=== PATIENT | male | born 1965 | race African-American/Black ===

== ENCOUNTER 2018-10-08 12:41 | Inpatient (IN) | payer BC, OTHER ==
[2018-10-08] MEDS ORDERED: ONDANSETRON 4 MG/2 ML VIAL IVP STA (14:05)
[2018-10-08] MEDS ORDERED: SODIUM CHLORIDE 0.9% 1,000 ML IV STA ×2 (14:05)
[2018-10-08] MEDS ORDERED: KETOROLAC 30 MG/ML 1 ML VIAL IVP STA (14:09)
--- NOTE | 2018-10-08 14:17 | ED ---
General Adult HPI - General Chief complaint: Abdominal Pain Stated complaint: vomiting Source: patient, RN notes reviewed, old records reviewed Mode of arrival: wheelchair Limitations: no limitations - History of Present Illness Initial comments: 53-year-old male patient with no pertinent past medical history presents with 3 days of cramping abdominal pain, nausea vomiting. Patient states that for approximately 3 days he has had nausea/vomiting and cramping pain in his abdomen. Patient was seen at [facility] approximately 2 days ago, subjectively diagnosed with a viral gastroenteritis. Patient was prescribed Zofran at this visit, however patient did not pick it up from the pharmacy. Patient additionally complains of some subjective fevers and chills, did not take temperature at home. Patient denies diarrhea. Patient denies chest pain, shortness of breath, cough/congestion, difficulty breathing, changes in vision, headache, pain in neck, new weakness or focal deficit. Patient denies any chronic medical conditions. Patient states that he has not taken any medication at home. Patient denies any previous intra-abdominal surgery pathology. Systemic: Pt denies myalgia, rash. Pt denies weakness, night sweats, weight loss. Neuro: Pt denies headache, visual disturbances, syncope or pre-syncope. HEENT: Pt denies ocular discharge or irritation, otalgia, rhinorrhea, pharyngitis or notable lymphadenopathy. Cardiopulmonary: Pt denies chest pain, SOB, heart palpitations, dyspnea on exertion. : Pt denies dysuria, burning w/ urination, frequency/urgency. Denies new onset urinary or bowel incontinence. MSK: Pt denies myalgia, loss of strength or function in extremities. - Related Data Home Medications Medication Instructions Recorded Confirmed No Known Home Medications 10/08/18 10/08/18 Allergies Allergy/AdvReac Type Severity Reaction Status Date / Time No Known Allergies Allergy Verified 10/08/18 14:25 Review of Systems ROS Statement: Those systems with pertinent positive or pertinent negative responses have been documented in the HPI. ROS Other: All systems not noted in ROS Statement are negative. Past Medical History Past Medical History: No Reported History History of Any Multi-Drug Resistant Organisms: None Reported Past Surgical History: No Surgical Hx Reported Past Psychological History: No Psychological Hx Reported Smoking Status: Current every day smoker Past Alcohol Use History: Daily Past Drug Use History: Marijuana - Past Family History Mother Additional Family Medical History / Comment(s): Mother has pacemaker, no history from father General Exam - General Exam Comments Initial Comments: Constitutional: NAD, AOX3. HEENT: NC/AT, trachea midline, neck supple, no lymphadenopathy. Posterior pharynx non erythematous, without exudates. External ears appear normal, without discharge. Mucous membranes moist. Eyes PERRLA, EOM intact. There is no scleral icterus. No pallor noted. Cardiopulmonary: RRR, no murmurs, rubs or gallops, no JVD noted. Lungs CTAB in anterior and posterior flores. No peripheral edema. Abdominal exam: Abdomen soft and non-distended. No localized abdominal tenderness, pt has mild tenderness in all quadrants. No guarding or rigidity. [place] sign negative. No ecchymosis, [place]/cullens sign negative. Bowel sounds active in LLQ. No hepatosplenomegaly. Neuro: CN II-XII grossly intact. Limitations: no limitations Course Vital Signs 10/08/18 10/08/18 10/08/18 13:00 14:15 15:45 Temperature 97.7 F Pulse Rate 78 66 69 Respiratory 20 22 20 Rate Blood Pressure 137/67 137/91 152/91 O2 Sat by Pulse 95 99 96 Oximetry 10/08/18 10/08/18 17:15 19:15 Temperature Pulse Rate 72 68 Respiratory 20 18 Rate Blood Pressure 155/100 147/94 O2 Sat by Pulse 99 100 Oximetry Medical Decision Making - Medical Decision Making 53-year-old male patient with no pertinent past medical history presents with 3 days of cramping abdominal pain, nausea vomiting. Patient states that for approximately 3 days he has had nausea/vomiting and cramping pain in his abdomen. Patient was seen at [facility] approximately 2 days ago, subjectively diagnosed with a viral gastroenteritis. Patient additionally complains of some subjective fevers and chills, did not take temperature at home. Patient denies diarrhea. Patient denies chest pain, shortness of breath , cough/congestion, difficulty breathing, changes in vision, headache, pain in neck, new weakness or focal deficit. Patient denies any chronic medical conditions. Patient states that he has not taken any medication at home. Patient denies any previous intra-abdominal surgery pathology. Physical exam displayed tender abdomen diffusely, no localized tenderness. Looney sign is negative. Cardiopulmonary exam was within normal limits. Laboratory investigations revealed a lactic acid of 3.0, an elevated hemoglobin of 19, Cr of 1.27, and no other pathology. CT of abdomen and pelvis displayed a small bowel obstruction a small amount of ascites. Patient was bolused a total of 2L of fluid and a NG tube was placed. Patient to be admitted to hospital for management of small bowel obstruction. Case discussed with Dr. Clemons. - Lab Data Result diagrams: 10/08/18 14:00 10/08/18 14:00 Lab Results 10/08/18 10/08/18 10/08/18 Range/Units 14:00 14:00 14:15 WBC 9.9 (3.8-10.6) k/uL RBC 6.24 H (4.30-5.90) m/uL Hgb 19.2 H* (13.0-17.5) gm/dL Hct 58.1 H* (39.0-53.0) % MCV 93.1 (80.0-100.0) fL MCH 30.8 (25.0-35.0) pg MCHC 33.1 (31.0-37.0) g/dL RDW 12.9 (11.5-15.5) % Plt Count 389 (150-450) k/uL Neutrophils % 74 % Lymphocytes % 18 % Monocytes % 6 % Eosinophils % 1 % Basophils % 0 % Neutrophils # 7.4 (1.3-7.7) k/uL Lymphocytes # 1.8 (1.0-4.8) k/uL Monocytes # 0.6 (0-1.0) k/uL Eosinophils # 0.1 (0-0.7) k/uL Basophils # 0.0 (0-0.2) k/uL Sodium 137 (137-145) mmol/L Potassium 4.2 (3.5-5.1) mmol/L Chloride 103 (98-107) mmol/L Carbon Dioxide 24 (22-30) mmol/L Anion Gap 10 mmol/L BUN 19 (9-20) mg/dL Creatinine 1.27 H (0.66-1.25) mg/dL Est GFR (CKD-EPI)AfAm 73 (>60 ml/min/1.73 sqM) Est GFR (CKD-EPI)NonAf 63 (>60 ml/min/1.73 sqM) Glucose 114 H (74-99) mg/dL Lactic Ac Sepsis Rflx Plasma Lactic Acid Naseem (0.7-2.0) mmol/L Calcium 10.0 (8.4-10.2) mg/dL Total Bilirubin 1.5 H (0.2-1.3) mg/dL AST 36 (17-59) U/L ALT 28 (21-72) U/L Alkaline Phosphatase 80 (38-126) U/L Total Protein 7.4 (6.3-8.2) g/dL Albumin 4.2 (3.5-5.0) g/dL Amylase 67 (30-110) U/L Lipase 96 (23-300) U/L Influenza Type A RNA Not Detected (Not Detectd) Influenza Type B (PCR) Not Detected (Not Detectd) 10/08/18 10/08/18 Range/Units 14:50 15:20 WBC (3.8-10.6) k/uL RBC (4.30-5.90) m/uL Hgb (13.0-17.5) gm/dL Hct (39.0-53.0) % MCV (80.0-100.0) fL MCH (25.0-35.0) pg MCHC (31.0-37.0) g/dL RDW (11.5-15.5) % Plt Count (150-450) k/uL Neutrophils % % Lymphocytes % % Monocytes % % Eosinophils % % Basophils % % Neutrophils # (1.3-7.7) k/uL Lymphocytes # (1.0-4.8) k/uL Monocytes # (0-1.0) k/uL Eosinophils # (0-0.7) k/uL Basophils # (0-0.2) k/uL Sodium (137-145) mmol/L Potassium (3.5-5.1) mmol/L Chloride (98-107) mmol/L Carbon Dioxide (22-30) mmol/L Anion Gap mmol/L BUN (9-20) mg/dL Creatinine (0.66-1.25) mg/dL Est GFR (CKD-EPI)AfAm (>60 ml/min/1.73 sqM) Est GFR (CKD-EPI)NonAf (>60 ml/min/1.73 sqM) Glucose (74-99) mg/dL Lactic Ac Sepsis Rflx Y Plasma Lactic Acid Naseem 3.0 H* (0.7-2.0) mmol/L Calcium (8.4-10.2) mg/dL Total Bilirubin (0.2-1.3) mg/dL AST (17-59) U/L ALT (21-72) U/L Alkaline Phosphatase (38-126) U/L Total Protein (6.3-8.2) g/dL Albumin (3.5-5.0) g/dL Amylase (30-110) U/L Lipase (23-300) U/L Influenza Type A RNA (Not Detectd) Influenza Type B (PCR) (Not Detectd) Disposition Clinical Impression: Small bowel obstruction Disposition: ADMITTED IP TO THIS [facility] Condition: Good Is patient prescribed a controlled substance at d/c from ED?: No Decision Date: 10/08/18 Decision Time: 16:13
[2018-10-08 15:11] LABS: Basophils % (A) 0 %; Eosinophils # (A) 0.1 k/uL (0-0.7); Eosinophils % (A) 1 %; Lymphocytes # (A) 1.8 k/uL (1.0-4.8); Lymphocytes % (A) 18 %; MCH 30.8 pg (25.0-35.0); MCHC 33.1 g/dL (31.0-37.0); MCV 93.1 fL (80.0-100.0); Mean Platelet Volume 6.8; Monocytes # (A) 0.6 k/uL (0-1.0); Monocytes % (A) 6 %; Neutrophils # (A) 7.4 k/uL (1.3-7.7); Neutrophils % (A) 74 %; Platelet Count 389 k/uL (150-450); RBC 6.24 m/uL (4.30-5.90); RDW 12.9 % (11.5-15.5); WBC 9.9 k/uL (3.8-10.6)
--- NOTE | 2018-10-08 15:16 | CT ---
EXAMINATION TYPE: CT ChestAbdPelvis w con DATE OF EXAM: 10/08/2018 COMPARISON: None HISTORY: Epigastric/generalized abdominal pain. CT DLP: 1067.9 mGycm CONTRAST: CT scan of the chest, abdomen and pelvis is performed without Oral Contrast and with IV Contrast, pat ient injected with 100 mL of Isovue 300. CT Chest: LUNGS: The lungs are clear and free of infiltrate or atelectasis. No pulmonary nodule or mass is det ected. No pleural effusion or CT evidence of interstitial lung disease. MEDIASTINUM: Thoracic aorta is of normal caliber. The heart is not enlarged. No evidence for media stinal mass or adenopathy. HILAR STRUCTURES: No evidence for mass. No hilar adenopathy is appreciated. OTHER: No significant abnormality. CONTRAST CT ABDOMEN AND PELVIS FINDINGS: LIVER/GB: Small amount of free fluid adjacent to the liver edge. No calcified gallstones. No space occupying hepatic lesion. Biliary tree is of normal caliber. PANCREAS: No inflammation. No distinct mass. SPLEEN: No splenic enlargement. No lesion seen. ADRENALS: No nodule. No thickening. KIDNEYS/BLADDER: No hydronephrosis. No nephrolithiasis. No disctinct renal mass. BOWEL: The appendix is poorly visualized. No definite inflammatory process is identified within the r ight lower quadrant. Dilated small bowel measuring up to 4 cm with transition zone and normalized sma ll bowel in the region of the proximal ileum. GENITAL ORGANS: No gross abnormality. LYMPH NODES: No greater than 1cm abdominal or pelvic lymph nodes are appreciated. AORTA: No significant abnormality. OSSEOUS STRUCTURES: No significant abnormality is seen. OTHER: Small amount of free fluid within the pelvis. IMPRESSION: 1. Findings felt to reflect small bowel obstruction with dilated small bowel measuring up to 4 cm wit h transition zone and normalized small bowel in the region of the proximal ileum. 2. Small amount of ascites. No evidence for pneumoperitoneum. No abscess seen.
--- NOTE | 2018-10-08 15:18 | XR ---
EXAMINATION TYPE: XR chest 2V DATE OF EXAM: 10/08/2018 COMPARISON: NONE HISTORY: Chest pain TECHNIQUE: Frontal and lateral views of the chest are obtained. FINDINGS: There is no focal air space opacity. No evidence for pneumothorax. No pleural effusion. The cardiac silhouette size is within normal limits. The osseous structures are grossly intact. IMPRESSION: 1. No acute cardiopulmonary process.
[2018-10-08 15:20] LABS: Albumin 4.2 g/dL (3.5-5.0); Potassium 4.2 mmol/L (3.5-5.1); Total Bilirubin 1.5 mg/dL (0.2-1.3); Total Protein 7.4 g/dL (6.3-8.2)
[2018-10-08 15:30] LABS: HCT 58.1 % (39.0-53.0); HGB 19.2 gm/dL (13.0-17.5)
[2018-10-08] MEDS ORDERED: SODIUM CHLORIDE 0.9% 1,000 ML IV ONE (16:10)
[2018-10-08] MEDS ORDERED: NALOXONE 0.4 MG/ML 1 ML VIAL IV PRN (16:14)
[2018-10-08] MEDS ORDERED: ACETAMINOPHEN TAB 325 MG TAB PO PRN (16:14)
[2018-10-08 20:43] LABS: Appearance,Urine Clear (Clear); Bilirubin,Urine Negative (Negative); Blood,Urine Negative (Negative); Color,Urine Yellow; Glucose,Urine (UA) Negative (Negative); Ketones,Urine 1+ (Negative); Leukocyte Esterase,Urine Negative (Negative); Mucus,Urine Few /hpf; Nitrite,Urine Negative (Negative); PH, Urine 6.5 (5.0-8.0); Protein,Urine 1+ (Negative); RBC,Urine 3 /hpf (0-5)
[2018-10-08 20:49] LABS: Specific Gravity,Urine >1.050 (1.001-1.035)
[2018-10-08] MEDS ORDERED: KETOROLAC 30 MG/ML 1 ML VIAL IVP PRN (21:56)
[2018-10-08] MEDS: KETOROLAC 30 MG/ML 1 ML VIAL IVP SCH (22:14)
--- NOTE | 2018-10-09 | HP ---
HISTORY AND PHYSICAL DATE OF ADMISSION: 10/08/2018 DATE OF SERVICE: 10/08/2018. PRESENTING COMPLAINT: Abdominal pain. HISTORY OF PRESENTING COMPLAINT: This is a pleasant 53-year-old patient of Dr. Moreira with a rather unremarkable past medical history. The patient 3 years ago started having increasing abdominal pain, central, more diffuse, started having nausea and vomiting, did feel a bit hot and cold, with no obvious fever. He presented to the ER. The patient did have a small bowel movement yesterday. CT scan did show a small-bowel obstruction. An NG tube was placed. The patient is admitted for the same. Surgery was consulted from the ER. REVIEW OF SYSTEMS: CONSTITUTIONAL: Tired. HEENT: None. RESPIRATORY: None. CARDIOVASCULAR: None. GASTROINTESTINAL: As above. GENITOURINARY: None. MUSCULOSKELETAL: None. DERMATOLOGICAL: None. HEMATOLOGICAL: None. LYMPHATICS: None. PSYCHIATRY: None. NEUROLOGICAL: None. PAST MEDICAL HISTORY: Diet-controlled hypertension. PAST SURGICAL HISTORY: 1. Right knee arthroscopic repair. 2. Had webbed fingers, 6 fingers at , surgery to repair. SOCIAL HISTORY: Smokes about half a pack a day. Does $20 worth of marijuana a day. Lives with his friend Danica. He is between jobs. FAMILY HISTORY: Mother has a pacemaker. HOME MEDICATIONS: None. ALLERGIES: NONE. PHYSICAL EXAMINATION: Temperature 97.7, pulse 78, respiration 20, blood pressure 137/67, pulse ox 95% on room air. GENERAL APPEARANCE: Average build, lying in bed, tired-appearing. EYES: Pupils equal. Conjunctivae normal. HEENT: External appearance of nose and ears normal. Oral cavity dry with NG tube in place. NECK: JVD not raised. Mass not palpable. RESPIRATORY: Effort normal. Lungs are clear. CARDIOVASCULAR: First and second sounds normal. No edema. ABDOMEN: Mild tenderness. Bowel sounds are present. No guarding or rigidity. Liver and spleen not palpable. LYMPHATIC: No lymph node palpable in neck or axillae. PSYCHIATRY: Alert and oriented x3. Mood and affect normal. NEUROLOGICAL: Pupils equal. Cranial nerves grossly intact. Power and sensation grossly intact. INVESTIGATIONS: White count 9.9, hemoglobin 19.2, potassium 4.2, BUN 19, creatinine 1.27, total bilirubin 1.5. CT scan of the abdomen and pelvis is reported to be clear. Small bowel obstruction with a transition noticed. ASSESSMENT: 1. Acute small-bowel obstruction. Clinically there is no evidence of obvious infection. There is no white count, no fever. 2. Chronic nicotine dependence. Patient is a cigarette smoker. 3. Chronic recreational marijuana use. 4. Possible acute renal failure, prerenal, from vomiting. Creatinine is 1.27. 5. Lactic acidosis from above. PLAN: General Surgery was consulted. Patient will be put on lactated Ringer's 125 mL/hour. Patient will be given a nicotine patch. Repeat labs in the morning. NG tube is in place. Lovenox for DVT prophylaxis. MMODL / IJN: [id number] /
[2018-10-09] MEDS: LACTATED RINGERS 1,000 ML IV SCH ×4 (03:36→21:38)
[2018-10-09] MEDS: KETOROLAC 30 MG/ML 1 ML VIAL IVP SCH ×4 (04:22→23:01)
[2018-10-09] MEDS: ENOXAPARIN 40 MG/0.4 ML SYRINGE SQ SCH (08:07)
[2018-10-09] MEDS: HYDROmorphone 1 MG/ML 1 ML SYRINGE IVP PRN ×2 (08:08→18:16)
[2018-10-09] MEDS: NICOTINE 14MG/24HR PATCH TRANSDERM SCH (08:09)
--- NOTE | 2018-10-09 08:37 | P.GSCN ---
History of Present Illness Consult date: 10/09/18 History of present illness: Small bowel obstruction Past Medical History Past Medical History: No Reported History Additional Past Medical History / Comment(s): Prior hypertension, states diet controlled History of Any Multi-Drug Resistant Organisms: None Reported Past Surgical History: No Surgical Hx Reported Additional Past Surgical History / Comment(s): Right Knee arthroscopic repair, had webbed fingers, six fingers at surgery to repair Past Psychological History: No Psychological Hx Reported Smoking Status: Current every day smoker Past Alcohol Use History: Daily Past Drug Use History: Marijuana - Past Family History Mother Additional Family Medical History / Comment(s): Mother has pacemaker, no history from father Medications and Allergies Home Medications Medication Instructions Recorded Confirmed Type No Known Home Medications 10/08/18 10/08/18 History Allergies Allergy/AdvReac Type Severity Reaction Status Date / Time No Known Allergies Allergy Verified 10/08/18 14:25 Surgical - Exam Vital Signs Temp Pulse Resp BP Pulse Ox 97.7 F 78 20 137/67 95 10/08/18 13:00 10/08/18 13:00 10/08/18 13:00 10/08/18 13:00 10/08/18 13:00 - General well developed, no distress - Eyes PERRL - ENT normal pinna - Neck no masses - Respiratory normal expansion - Cardiovascular Rhythm: regular - Abdomen Mild abdominal distention with some diffuse tenderness. Abdomen: soft Results - Labs 10/08/18 14:00 10/08/18 14:00 Abnormal Lab Results - Last 24 Hours (Table) 10/08/18 10/08/18 10/08/18 Range/Units 14:00 14:00 14:50 RBC 6.24 H (4.30-5.90) m/uL Hgb 19.2 H* (13.0-17.5) gm/dL Hct 58.1 H* (39.0-53.0) % Creatinine 1.27 H (0.66-1.25) mg/dL Glucose 114 H (74-99) mg/dL Plasma Lactic Acid Naseem 3.0 H* (0.7-2.0) mmol/L Total Bilirubin 1.5 H (0.2-1.3) mg/dL Ur Specific [place] (1.001-1.035) Urine Protein (Negative) Urine Ketones (Negative) Urine Mucus (None) /hpf 10/08/18 Range/Units 20:15 RBC (4.30-5.90) m/uL Hgb (13.0-17.5) gm/dL Hct (39.0-53.0) % Creatinine (0.66-1.25) mg/dL Glucose (74-99) mg/dL Plasma Lactic Acid Naseem (0.7-2.0) mmol/L Total Bilirubin (0.2-1.3) mg/dL Ur Specific [place] >1.050 H (1.001-1.035) Urine Protein 1+ H (Negative) Urine Ketones 1+ H (Negative) Urine Mucus Few H (None) /hpf Diabetes panel 10/08/18 Range/Units 14:00 Sodium 137 (137-145) mmol/L Potassium 4.2 (3.5-5.1) mmol/L Chloride 103 (98-107) mmol/L Carbon Dioxide 24 (22-30) mmol/L BUN 19 (9-20) mg/dL Creatinine 1.27 H (0.66-1.25) mg/dL Glucose 114 H (74-99) mg/dL Calcium 10.0 (8.4-10.2) mg/dL AST 36 (17-59) U/L ALT 28 (21-72) U/L Alkaline Phosphatase 80 (38-126) U/L Total Protein 7.4 (6.3-8.2) g/dL Albumin 4.2 (3.5-5.0) g/dL Calcium panel 10/08/18 Range/Units 14:00 Calcium 10.0 (8.4-10.2) mg/dL Albumin 4.2 (3.5-5.0) g/dL Pituitary panel 10/08/18 Range/Units 14:00 Sodium 137 (137-145) mmol/L Potassium 4.2 (3.5-5.1) mmol/L Chloride 103 (98-107) mmol/L Carbon Dioxide 24 (22-30) mmol/L BUN 19 (9-20) mg/dL Creatinine 1.27 H (0.66-1.25) mg/dL Glucose 114 H (74-99) mg/dL Calcium 10.0 (8.4-10.2) mg/dL Adrenal panel 10/08/18 Range/Units 14:00 Sodium 137 (137-145) mmol/L Potassium 4.2 (3.5-5.1) mmol/L Chloride 103 (98-107) mmol/L Carbon Dioxide 24 (22-30) mmol/L BUN 19 (9-20) mg/dL Creatinine 1.27 H (0.66-1.25) mg/dL Glucose 114 H (74-99) mg/dL Calcium 10.0 (8.4-10.2) mg/dL Total Bilirubin 1.5 H (0.2-1.3) mg/dL AST 36 (17-59) U/L ALT 28 (21-72) U/L Alkaline Phosphatase 80 (38-126) U/L Total Protein 7.4 (6.3-8.2) g/dL Albumin 4.2 (3.5-5.0) g/dL - Imaging CT scan - abdomen: report reviewed (The lid proximal ileum with transition zone) Assessment and Plan Assessment: Small bowel structure. Patient will undergo repeat CAT scan to evaluate for persistent obstruction. If this is still present he will undergo exploratory laparotomy for repair of small bowel obstruction in the a.m.
[2018-10-09 10:38] LABS: Basophils % (A) 0 %; Eosinophils # (A) 0.1 k/uL (0-0.7); Eosinophils % (A) 2 %; HCT 51.1 % (39.0-53.0); HGB 16.5 gm/dL (13.0-17.5); Lymphocytes # (A) 1.6 k/uL (1.0-4.8); Lymphocytes % (A) 22 %; MCH 30.6 pg (25.0-35.0); MCHC 32.3 g/dL (31.0-37.0); MCV 94.5 fL (80.0-100.0); Mean Platelet Volume 6.6; Monocytes # (A) 0.6 k/uL (0-1.0); Monocytes % (A) 8 %; Neutrophils # (A) 4.9 k/uL (1.3-7.7); Neutrophils % (A) 67 %; Platelet Count 425 k/uL (150-450); RBC 5.41 m/uL (4.30-5.90); RDW 12.8 % (11.5-15.5); WBC 7.3 k/uL (3.8-10.6)
[2018-10-09 10:52] LABS: Calcium 8.8 mg/dL (8.4-10.2); Potassium 3.8 mmol/L (3.5-5.1)
[2018-10-09] MEDS: IOPAMIDOL-300 CONTRAST 30 ML VIAL (ORAL USE) PO PRN ×2 (12:04→12:05)
--- NOTE | 2018-10-09 15:00 | CT ---
EXAMINATION TYPE: CT abdomen pelvis wo con DATE OF EXAM: 10/09/2018 HISTORY: Small bowel obstruction CT DLP: 663.4 mGycm. Automated Exposure Control for Dose Reduction was Utilized. TECHNIQUE: CT scan of the abdomen and pelvis is performed with oral contrast through NG tube but wit hout IV contrast. COMPARISON: CT from one day earlier FINDINGS: Within the limitations of a non-contrast study, the following observations are made. LUNG BASES: There is worsening posterior bibasilar linear atelectasis. LIVER/GB: Tiny amount of perihepatic ascites along superior anterior margin is redemonstrated. Gallbl adder has distended margins similar to prior PANCREAS: No significant abnormality is seen. SPLEEN: No significant abnormality is seen. ADRENALS: No significant abnormality is seen. KIDNEYS: Simple appearing 4-5 cm cyst laterally mid pole level left kidney is redemonstrated. Contras t from recent CT is filling bladder and pelvis BOWEL: Contrast in slightly prominent stomach is now identified, degree of dilatation is unchanged fr om prior. Contrast in dilated duodenal sweep is now noted, degree of dilatation is stable from recent CT. There are dilated contrast-filled small bowel loops in the left upper quadrant. Oral contrast on ly reaches mid jejunal level. Degree of bowel dilatation is not significantly changed from one day ea rlier. Air-fluid levels are redemonstrated throughout dilated small bowel. Fluid-filled dilated small bowel loops in the lower abdomen are present there are nondilated ileal loops in the right lower matias drant. There is transition point in the left midabdomen seen best coronal image 38 from fluid dilated small bowel to nondilated small bowel. Some sigmoid diverticula in nondilated colon along the periph melissa remains present. GENITAL ORGANS: Prostate gland is mildly enlarged bulging on bladder base. LYMPH NODES: No greater than 1cm abdominal or pelvic lymph nodes are appreciated. OSSEOUS STRUCTURES: Mild to moderate multilevel spurring in the thoracolumbar spine is present. OTHER: Small to moderate amount of free fluid in pelvis near axial image 87 is redemonstrated. IMPRESSION: There is persistent high-grade mid small bowel obstruction with transition point identifi ed on current study. No significant interval change.
--- NOTE | 2018-10-09 21:58 | PN ---
PROGRESS NOTE DATE OF SERVICE: 10/09/18 PRESENTING COMPLAINT: Abdominal pain. INTERVAL HISTORY: This patient presents small-bowel obstruction. NG tube in place. Significant amount was put out. Some improvement, abdominal pain is still present. Passed a little bit of flatus. Lying in bed, tired. REVIEW OF SYSTEMS: Done for constitutional, cardiovascular, GI, pulmonary; relevant findings as above. CURRENT MEDICATIONS: Reviewed that include IV fluids. EXAMINATION: Afebrile, pulse 66, respiratory 18, blood pressure 135/78, pulse 94 percent on room air. GENERAL APPEARANCE: Lying in bed, tired appearing. EYES: Pupils equal. Conjunctivae normal. HEENT: External appearance of nose and ears normal. Oral cavity dry. NG tube in place. NECK: JVD not raised. Mass not palpable. RESPIRATORY: Effort normal. Lungs are clear. CARDIOVASCULAR: First and second sounds, no edema. ABDOMEN: Mild tenderness. Bowel sounds are present. No guarding or rigidity. Liver and spleen not palpable. PSYCHIATRY: Alert and oriented x3. Mood and affect normal. INVESTIGATIONS: White count 7.3, hemoglobin 16.5, potassium 3.8. CT scan of the abdomen and pelvis showing persistent high-grade mid small bowel obstruction with transition point noted. ASSESSMENT: 1. Acute severe small-bowel obstruction with a high-grade transition point not improving with multiple air-fluid levels. 2. Chronic nicotine dependence, patient is a cigarette smoker. 3. Recreational marijuana use. 4. Lactic acidosis from above. PLAN: Continue medication and treatment plan. Increase IV fluids to 150 an hour. Still putting out quite a bit through the NG tube. Discussed with Dr. Barros. Possible surgery tomorrow. MMODL / IJN: [id number] /
[2018-10-10] MEDS: HYDROmorphone 1 MG/ML 1 ML SYRINGE IVP PRN ×3 (02:34→12:07)
[2018-10-10] MEDS: LACTATED RINGERS 1,000 ML IV SCH ×5 (04:09→18:58)
[2018-10-10] MEDS: KETOROLAC 30 MG/ML 1 ML VIAL IVP SCH ×4 (04:11→21:26)
[2018-10-10] MEDS: ENOXAPARIN 40 MG/0.4 ML SYRINGE SQ SCH (08:24)
[2018-10-10] MEDS: NICOTINE 14MG/24HR PATCH TRANSDERM SCH (08:24)
[2018-10-10] MEDS: ONDANSETRON 4 MG/2 ML VIAL IVP PRN (08:25)
[2018-10-10 11:15] LABS: Calcium 8.7 mg/dL (8.4-10.2); Potassium 3.7 mmol/L (3.5-5.1)
[2018-10-10] MEDS ORDERED: BENZOCAINE SPRAY 1 CAN MUCOUS MEM PRN (12:50)
[2018-10-10 13:39] LABS: INR 1.2 (<1.2); Prothrombin Time 11.2 sec (9.0-12.0)
[2018-10-10] MEDS ORDERED: IV FLUID CONTINUATION 1,000 ML IV ONE (14:35)
[2018-10-10] MEDS ORDERED: fentaNYL (PF) 50 MCG/ML 20 ML VIAL IVP PRN (14:42)
[2018-10-10] MEDS ORDERED: fentaNYL (PF) 50 MCG/ML 2 ML AMP IV PRN (14:42)
[2018-10-10] MEDS ORDERED: MIDAZOLAM 2 MG/2 ML VIAL IV PRN ×2 (14:42→15:18)
[2018-10-10] MEDS ORDERED: NALOXONE 0.4 MG/ML 1 ML VIAL IV PRN ×2 (14:43→16:40)
[2018-10-10] MEDS: fentaNYL (PF) 50 MCG/ML 2 ML AMP IVP ONE ×2 (14:56→14:58)
[2018-10-10] MEDS ORDERED: DEXAMETHASONE SOD PHOSPHATE 10 MG/ML 1 ML VIAL IV ONE (15:18)
[2018-10-10] MEDS ORDERED: ONDANSETRON 4 MG/2 ML VIAL IVP ONE (15:18)
[2018-10-10] MEDS ORDERED: PROPOFOL 10 MG/ML 20 ML VIAL IV ONE (15:56)
[2018-10-10] MEDS ORDERED: SUCCINYLCHOLINE CHLORIDE 100 MG/5 ML SYR IV ONE (15:56)
[2018-10-10] MEDS ORDERED: LIDOCAINE 1% INJ 10MG/ML (20 ML MDV) ONE (15:56)
[2018-10-10] MEDS ORDERED: fentaNYL (PF) 50 MCG/ML 2 ML AMP ONE (15:56)
[2018-10-10] MEDS ORDERED: MIDAZOLAM 2 MG/2 ML VIAL ONE (15:56)
[2018-10-10] MEDS ORDERED: GLYCOPYRROLATE 0.2 MG/ML 2 ML VIAL ONE (15:56)
[2018-10-10] MEDS ORDERED: NEOSTIGMINE 1 MG/ML 10 ML VIAL ONE (15:56)
[2018-10-10] MEDS ORDERED: ROCURONIUM BROMIDE 10 MG/ML 10 ML VIAL IV ONE (15:56)
[2018-10-10] MEDS ORDERED: METOCLOPRAMIDE 5 MG/ML 2 ML VIAL IVP PRN (16:40)
[2018-10-10] MEDS ORDERED: LACTATED RINGERS 1,000 ML IV ONE ×2 (16:40→18:04)
--- NOTE | 2018-10-10 17:20 | PN ---
PROGRESS NOTE DATE OF SERVICE: 10/10/2018 PRESENTING COMPLAINT: Abdominal pain. INTERVAL HISTORY: This patient presented with small bowel obstruction, having a large output of the NG tube. Still having abdominal pain. No flatus. Dr. Barros has decided to proceed with surgery. Some nausea. No fever. No chills. Patient's girlfriend is at the bedside. REVIEW OF SYSTEMS: Done for constitutional, cardiovascular, GI, pulmonary; relevant findings as above. CURRENT MEDICATIONS: Reviewed. They include lactated Ringer's. PHYSICAL EXAMINATION: Temperature 98, pulse 52, respiration 16, blood pressure 110/64, pulse ox 95% on room air. GENERAL APPEARANCE: Lying in bed, tired-appearing. EYES: Pupils equal. Conjunctivae normal. HEENT: External appearance of nose and ears normal. Oral cavity dry. NG tube in place. NECK: JVD not raised. Mass not palpable. RESPIRATORY: Effort normal. Lungs are clear. CARDIOVASCULAR: First and second sounds normal. No edema. ABDOMEN: Tender. Hyperactive bowel sounds. Some tenderness. No guarding or rigidity. PSYCHIATRY: Alert and oriented x3. Mood and affect normal. INVESTIGATIONS: Potassium 3.7, BUN 25, creatinine 1.15. ASSESSMENT: 1. Acute severe small-bowel obstruction, high-grade transition point, not responding to conservative treatment. 2. Chronic nicotine dependence. Patient is a cigarette smoker. 3. Recreational marijuana use. 4. Lactic acidosis from above. PLAN: Continue with IV fluids. Patient is going down for surgery today. Care was discussed with the patient and his girlfriend. Questions were answered. MMODL / IJN: [id number] /
[2018-10-10] MEDS: HYDROmorphone 0.5 MG/0.5 ML SYRINGE IVP PRN ×2 (17:40→17:44)
--- NOTE | 2018-10-10 18:25 | P.OP ---
Date of Procedure: 10/10/18 Preoperative Diagnosis: Small bowel obstruction Postoperative Diagnosis: Small bowel obstruction secondary to adhesions Procedure(s) Performed: Exploratory laparotomy Lysis of adhesions Anesthesia: DANIELITO Surgeon: Milan Barros Estimated Blood Loss (ml): 10 Pathology: none sent Condition: stable Disposition: PACU Description of Procedure: The patient's placed the operative table in the supine position. He received general anesthesia. His abdomen was prepped and draped in the usual sterile fashion. The abdomen was entered through a midline incision. Upon entering the abdomen there was dilated loops of small bowel seen. The Bookwalter retractors placed a wound. Small bowel was run. And in the right lower quadrant there was a closed loop obstruction secondary to adhesive band. The adhesive band was dissected. Small bowel was freed. Small bowel was viable. The transition zone was well seen. This point the bowel was run from the ligament Treitz to the terminal ileum and there no no obstruction was seen. The abdomen was irrigated. The fascia is closed loop #1 PDS suture. Skin was closed clara. Patient top she will was sent to recovery in stable condition.
[2018-10-11] MEDS: HYDROmorphone 1 MG/ML 1 ML SYRINGE IVP PRN ×2 (00:27→18:23)
[2018-10-11] MEDS: LACTATED RINGERS 1,000 ML IV SCH ×6 (01:09→21:27)
[2018-10-11] MEDS: KETOROLAC 30 MG/ML 1 ML VIAL IVP SCH ×4 (04:41→21:20)
--- NOTE | 2018-10-11 06:32 | P.PN ---
Progress Note - Text Progress Note Date: 10/11/18 Mr. Suazo's postop day one catheter day #2. He had a T11-T12 epidural catheter placed for an exploratory laparotomy done by Dr. Marx. Catheter site is clean and dry, there is dried blood in the area. Catheter is running at 8 miles per hour. May increase to 10 miles per hour if needed. Patient required 1 dose of when necessary pain medications overnight. Patient able to move his legs is no numbness or motor weakness in his lower extremities. He does still have a Castellon catheter per the surgical team. We will continue to follow with the patient. Patient is on Lovenox if the epidural catheter is going to be discontinued Lovenox should be held for at least 12 hours before removing the catheter
[2018-10-11] MEDS: ENOXAPARIN 40 MG/0.4 ML SYRINGE SQ SCH (08:25)
[2018-10-11] MEDS: NICOTINE 14MG/24HR PATCH TRANSDERM SCH (08:25)
--- NOTE | 2018-10-11 10:33 | P.PN ---
Progress Note - Text Progress Note Date: 10/11/18 The patient's postoperative day 1 from exposure laparotomy lysis of adhesion for small bowel obstruction. The patient is a well. He's had no significant bowel function. On exam his vital signs are stable. His abdomen soft. His incision site is clean dry intact. Status post exploratory laparotomy with lysis of adhesion. Patient remained nothing by mouth with NG tube until bowel function improves.
[2018-10-11 10:50] LABS: Anion Gap 6 mmol/L; Blood Urea Nitrogen 18 mg/dL (9-20); Calcium 8.3 mg/dL (8.4-10.2); Carbon Dioxide 28 mmol/L (22-30); Chloride 103 mmol/L (98-107); Glucose 90 mg/dL (74-99); Potassium 3.8 mmol/L (3.5-5.1); Sodium 137 mmol/L (137-145)
[2018-10-11 18:31] LABS: Glucose,Whole Blood 85 mg/dL (75-99)
[2018-10-11] MEDS: ROPIVACAINE 250 MG, HYDROMORPHONE (PF) 5 MG in SODIUM CHLORIDE 0.9% 200 ML EPIDURAL PRN (19:19)
--- NOTE | 2018-10-11 23:54 | PN ---
PROGRESS NOTE DATE OF SERVICE: 10/11/2018 I am covering for Dr. David. This 53-year-old gentleman who was admitted with small bowel obstruction is being closely monitored. No chest pain. No palpitations. No fever. NG output is less at this time. EXAM: Alert and oriented. Pulse 92, blood pressure 140/86, respirations 16, temperature 97.8, pulse ox 94% on room air. HEENT: Conjunctivae normal. Oral mucosa. NECK: No jugular venous distention. No lymph node enlargement. CARDIOVASCULAR: S1, S2. RESPIRATORY: Diminished breath sounds at the bases. No rhonchi, no crackles. ABDOMEN: Soft, status post surgery. LEGS: No swelling. NERVOUS SYSTEM: No focal deficits. LABS: CBC within normal. BMP noted. ASSESSMENT: 1. Acute severe small bowel obstruction, high-grade with transition point, status post exploratory laparotomy. 2. Status post NG tube. 3. Chronic nicotine dependence. 5. Lactic acidosis. RECOMMENDATIONS AND DISCUSSION: Recommend to continue current medications, monitor, symptomatic treatment. Otherwise, closely follow with surgery. Further recommendations to follow. MMODL / IJN: [id number] / FERMIN
[2018-10-12] MEDS: ONDANSETRON 4 MG/2 ML VIAL IVP PRN ×2 (00:01→19:55)
[2018-10-12] MEDS: KETOROLAC 30 MG/ML 1 ML VIAL IVP SCH ×4 (06:17→21:14)
[2018-10-12] MEDS: LACTATED RINGERS 1,000 ML IV SCH ×4 (06:18→16:20)
[2018-10-12] MEDS: ENOXAPARIN 40 MG/0.4 ML SYRINGE SQ SCH (07:28)
[2018-10-12] MEDS: NICOTINE 14MG/24HR PATCH TRANSDERM SCH (07:29)
[2018-10-12] MEDS: HYDROmorphone 1 MG/ML 1 ML SYRINGE IVP PRN (08:52)
[2018-10-12 09:08] LABS: Anion Gap 6 mmol/L; Blood Urea Nitrogen 15 mg/dL (9-20); Calcium 8.3 mg/dL (8.4-10.2); Carbon Dioxide 30 mmol/L (22-30); Chloride 103 mmol/L (98-107); Glucose 89 mg/dL (74-99); Potassium 3.8 mmol/L (3.5-5.1); Sodium 139 mmol/L (137-145)
--- NOTE | 2018-10-12 09:20 | P.PN ---
Progress Note - Text Progress Note Date: 10/12/18 The patient states he has had some flatus. On exam is lesser stable. His evidence soft. Incisions clean dry tach. Patient will start on clear liquid diet. He is postoperative day 2 from exploratory laparotomy with lysis of adhesions.
[2018-10-12] MEDS ORDERED: TAMSULOSIN 0.4 MG CAP.ER.24H PO STA (12:22)
--- NOTE | 2018-10-12 13:36 | CDI ---
Last Revision, October 2017 Documentation Clarification Form Date: 10/12/2018 1:11:21 PM From: Gissell Kwok RN, CCDS Admit Date: 10/08/2018 6:25:00 PM Patient Name: Gigi Suazo Visit Number: [id number] Discharge Date: ATTENTION: The Clinical Documentation Specialists (CDI) and [facility] Coding Staff appreciate your assistance in clarifying documentation. Please respond to the clarification below the line at the bottom and electronically sign. The CDI & [facility] Coding staff will review the response and follow-up if needed. Please note: Queries are made part of the Legal Health Record. If you have any questions, please contact the author of this message via ITS. Milan Pepper MD In your procedure report in the right lower quadrant there was a closed loop obstruction secondary to adhesive band. To accurate code the procedure further clarification is needed Patient history/risk factors: Current every day smoker, Diet-controlled hypertension, Chronic recreational marijuana use Clinical Indicators: Present with complaints of abdominal pain distention with some diffuse tenderness. Lab findings: WBC 9.9, HGB 19.2, HCT 58.1, Cr 1.[address] abdomen: Small bowel structure, persistent high-grade mid small bowel obstruction with transition point. Vital Signs: 137/67 78 20 97.7 95 % RA Treatment: Exploratory Laparotomy, lysis of adhesions NPO, NGT LIS IV Fluids In your professional opinion, can you please clarify if the closed loop obstruction secondary to adhesive band was a? Complete Obstruction Incomplete Obstruction Partial Obstruction Other, please specify Unable to determine Please continue to document in your progress notes and discharge summary in order to capture severity of illness and risk of mortality. Include clinical findings that support your diagnosis. discharge summary corrected MTDD
[2018-10-12 13:57] VITALS: BMI 28.5
--- NOTE | 2018-10-12 17:40 | PN ---
PROGRESS NOTE I am covering for Dr. David. DATE OF SERVICE: 10/12/2018 This 53-year-old gentleman who was admitted with multiple medical issues and small- bowel obstruction had surgery. NG tube was removed. No chest pain. No palpitations. No fever. The diet is being advanced as initiated by Surgery. No chest pain. No palpitation. On exam, alert and oriented x3. Pulse 89, blood pressure 132/90, respiration 16, temperature 98.6, pulse ox 92% on room air. HEENT: Conjunctivae normal. Oral mucosa moist. NECK: No jugular venous distention. No carotid bruit. No lymph node enlargement. CARDIOVASCULAR SYSTEM: S1, S2 muffled. RESPIRATORY SYSTEM: Breath sounds diminished at the bases. No rhonchi. No crackles. ABDOMEN: Soft. Status post surgery. LEGS: No edema. No swelling. NERVOUS SYSTEM: No focal deficit. LABS: CBC noted. BMP normal. ASSESSMENT: 1. Acute severe small-bowel obstruction, high grade, with a transition point, status post exploratory laparotomy. 2. Status post NG tube. 3. Chronic nicotine dependence. 4. Lactic acidosis, present on admission. RECOMMENDATIONS AND DISCUSSION: I recommend to continue current medications, continue the monitoring, symptomatic treatment. Otherwise, closely follow with Surgery. Pain medication. DVT prophylaxis. Further recommendations to follow. MMODL / IJN: [id number] /
[2018-10-12] MEDS: ROPIVACAINE 250 MG, HYDROMORPHONE (PF) 5 MG in SODIUM CHLORIDE 0.9% 200 ML EPIDURAL PRN (23:48)
[2018-10-13] MEDS: LACTATED RINGERS 1,000 ML IV SCH ×6 (00:49→23:57)
[2018-10-13] MEDS: KETOROLAC 30 MG/ML 1 ML VIAL IVP SCH ×4 (06:24→23:54)
[2018-10-13] MEDS: NICOTINE 14MG/24HR PATCH TRANSDERM SCH (10:26)
[2018-10-13] MEDS: ENOXAPARIN 40 MG/0.4 ML SYRINGE SQ SCH (10:26)
[2018-10-13 10:37] LABS: Anion Gap 8 mmol/L; Blood Urea Nitrogen 14 mg/dL (9-20); Calcium 8.1 mg/dL (8.4-10.2); Carbon Dioxide 27 mmol/L (22-30); Chloride 102 mmol/L (98-107); Glucose 81 mg/dL (74-99); Potassium 3.6 mmol/L (3.5-5.1); Sodium 137 mmol/L (137-145)
--- NOTE | 2018-10-13 11:22 | P.PN ---
Progress Note - Text Progress Note Date: 10/13/18 Patient is resting comfortably his bed. He had 1 episode of emesis yesterday. On exam is lesser stable. His evidence soft. Patient has had clear liquids this morning. He appears to be tolerating this. His epidural catheter was removed later today. The patient tolerates clear liquids he will have his diet advanced to full liquids
--- NOTE | 2018-10-13 16:32 | PN ---
PROGRESS NOTE DATE OF SERVICE: 10/13/2018 I am covering for Dr. David. This 53-year-old gentleman who was admitted after small bowel obstruction with transition point. The patient had NG tube and Castellon catheter removed. The patient has symptoms of benign prostatic hypertrophy. Surgery is following the patient closely. No chest pain. No palpitations. No fever. PHYSICAL EXAM: Alert and oriented x3. Pulse 100, blood pressure 130/89, respirations 16, temperature 97.9, pulse ox 90% on room air. HEENT: Conjunctivae normal. Oral mucosa moist. Neck is no jugular venous distention. No carotid bruit. No lymph node enlargement. CARDIOVASCULAR: S1, S2. RESPIRATORY: Breath sounds diminished in the bases. No rhonchi. No crackles. ABDOMEN: Soft, status post surgery. LEGS: No edema, no swelling. NERVOUS SYSTEM: No focal deficits. LABS: BMP normal. ASSESSMENT: 1. Acute small-bowel obstruction, high-grade with transition point, status post exploratory laparotomy. 2. Status post NG tube. 3. Chronic nicotine dependence. 4. Lactic acidosis present on admission. 5. Possible benign prostatic hypertrophy. RECOMMENDATIONS AND DISCUSSION: I recommend to continue current management, continue monitoring and symptomatic treatment. Continue with the DVT prophylaxis. Continue with Flomax. Otherwise, we will continue to follow with Surgery. Further recommendations to follow. MMODL / IJN: [id number] /
[2018-10-13] MEDS: TAMSULOSIN 0.4 MG CAP.ER.24H PO SCH (17:57)
[2018-10-13] MEDS: PANTOPRAZOLE 40 MG/10 ML VIAL IVP SCH (21:13)
[2018-10-13] MEDS: HYDROcodone/APAP 5-325MG 1 EACH TAB PO PRN (21:20)
[2018-10-14] MEDS: HYDROmorphone 1 MG/ML 1 ML SYRINGE IVP PRN ×2 (07:12→20:16)
[2018-10-14] MEDS: ONDANSETRON 4 MG/2 ML VIAL IVP PRN (07:13)
[2018-10-14] MEDS: ENOXAPARIN 40 MG/0.4 ML SYRINGE SQ SCH (08:33)
[2018-10-14] MEDS: PANTOPRAZOLE 40 MG/10 ML VIAL IVP SCH (08:33)
[2018-10-14] MEDS: NICOTINE 14MG/24HR PATCH TRANSDERM SCH (08:33)
[2018-10-14] MEDS: LACTATED RINGERS 1,000 ML IV SCH ×3 (08:34→20:19)
--- NOTE | 2018-10-14 10:33 | P.PN ---
Progress Note - Text Progress Note Date: 10/14/18 Postoperative day 4 Patient is tolerating clear liquid diet. He is requesting more day. He has been able toward. He has had several small bowel movements. On exam his vital signs are stable. His evidence soft. Patient will have his diet increased. We dysphagia discharged home the next 24- 48 hours.
[2018-10-14] MEDS: HYDROcodone/APAP 5-325MG 1 EACH TAB PO PRN (16:06)
[2018-10-14] MEDS: TAMSULOSIN 0.4 MG CAP.ER.24H PO SCH (18:17)
--- NOTE | 2018-10-14 18:57 | PN ---
PROGRESS NOTE DATE OF SERVICE: 10/14/2018 I am covering for Dr. David. This 53-year-old gentleman was admitted with small bowel obstruction had surgery. The patient has improved significantly. No chest pain. No palpitations. No fever. EXAM: Alert and oriented x32. Pulse is 77, blood pressure 150/97, respirations 16, temperature 99.2, pulse ox 98% on room air. HEENT: Conjunctivae normal. NECK: No jugular venous distention. CARDIOVASCULAR: S1, S2. RESPIRATORY: Breath sounds diminished in the bases. A few scattered rhonchi. ABDOMEN: Soft. Mild diffuse tenderness present. No mass palpable. LEGS: No edema. NERVOUS SYSTEM: No focal deficits. LAB STUDIES: Sodium 139, potassium 3.6. ASSESSMENT: 1. Acute small-bowel obstruction with high-grade transient transition point status post exploratory laparotomy. 2. Status post NG tube. 3. Chronic nicotine dependence. 4. Lactic acidosis present on admission. 5. Possible benign prostatic hypertrophy. RECOMMENDATIONS AND DISCUSSION: I recommend to continue current management, continue monitoring and symptomatic treatment. Otherwise, diet per Surgery. Continue with Flomax. Guarded prognosis. Dr. David will follow. MMODL / IJN: [id number] /
[2018-10-14] MEDS: PANTOPRAZOLE 40 MG TABLET PO SCH (20:16)
[2018-10-15] MEDS: HYDROmorphone 1 MG/ML 1 ML SYRINGE IVP PRN ×3 (01:44→21:47)
[2018-10-15] MEDS: LACTATED RINGERS 1,000 ML IV SCH ×3 (03:01→15:54)
[2018-10-15] MEDS: ONDANSETRON 4 MG/2 ML VIAL IVP PRN (04:58)
[2018-10-15] MEDS: PANTOPRAZOLE 40 MG TABLET PO SCH ×2 (08:16→17:14)
[2018-10-15] MEDS: NICOTINE 14MG/24HR PATCH TRANSDERM SCH (08:16)
[2018-10-15] MEDS: ENOXAPARIN 40 MG/0.4 ML SYRINGE SQ SCH (08:16)
--- NOTE | 2018-10-15 09:13 | XR ---
EXAMINATION TYPE: XR abdomen complete w decub DATE OF EXAM: 10/15/2018 COMPARISON: NONE HISTORY: Postop TECHNIQUE: Supine, upright, and left side down lateral decubitus views of the abdomen are obtained. FINDINGS: Bowel gas pattern is nonspecific with air-fluid level seen in mild to prominent small bowel loops. Postsurgical clara are seen and there is hypertrophic and degenerative change of the spine. IMPRESSION: 1. Nonspecific abdomen correlate for ileus or partial obstruction. 2. Right basilar atelectasis or infiltrate.
[2018-10-15] MEDS: diphenhydrAMINE 50 MG/ML 1 ML VIAL IVP PRN ×2 (11:45→22:18)
[2018-10-15] MEDS: HYDROcodone/APAP 5-325MG 1 EACH TAB PO PRN (15:55)
--- NOTE | 2018-10-15 16:42 | P.PN ---
Progress Note - Text Progress Note Date: 10/15/18 The patient had some complaints of nausea today. His plain x-rays perform show evidence of an ileus. Patient's request and have his diet advanced. On exam his vital signs are stable. His abdomen is soft. Incision site is clean dry tach. I discussed patient that if concerned that he may have further issues with nausea vomiting if we advance his diet. He'll remain on full liquids currently.
[2018-10-15] MEDS: TAMSULOSIN 0.4 MG CAP.ER.24H PO SCH (17:14)
[2018-10-16] MEDS: HYDROcodone/APAP 5-325MG 1 EACH TAB PO PRN ×3 (04:32→14:01)
--- NOTE | 2018-10-16 06:14 | PN ---
PROGRESS NOTE DATE OF SERVICE: 10/15/2018 PRESENTING COMPLAINT: Bowel surgery. INTERVAL HISTORY: This is a patient who presents with small-bowel obstruction, status post adhesion lysis. The patient is on liquid diet. This afternoon, patient had a large bowel movement. Abdominal pain is much better. Diet is being advanced. No nausea or vomiting. No fever. No chills. REVIEW OF SYSTEMS: Done for constitutional, cardiovascular, GI, pulmonary; relevant findings as above. CURRENT MEDICATIONS: Current medications are reviewed that include Lovenox, [place]. Epidural has been taken off. PHYSICAL EXAMINATION: On examination, temperature 98.8, pulse 70, respirations 16, blood pressure 143/86, pulse ox 96% on room air. GENERAL APPEARANCE: Lying in bed, comfortable. EYES: Pupils equal. Conjunctivae normal. HENT: External appearance of nose and ears normal. Oral cavity normal. NECK: JVD not raised. Mass not palpable. RESPIRATORY: Effort normal. LUNGS: Fair entry. CARDIOVASCULAR: First and second sounds normal. No edema. ABDOMEN: Soft. Dressing over the incision site. Minimal tenderness. Bowel sounds are present. PSYCHIATRY: Alert and oriented x3. Mood and affect normal. INVESTIGATIONS: Potassium 3.6, BUN 14, creatinine 0.93. ASSESSMENT: 1. Acute small-bowel obstruction followed by lysis of adhesions with a large bowel movement today. 2. Chronic nicotine dependence, patient is a cigarette smoker. 3. Recreational marijuana use. 4. Lactic acidosis from above, improved. 5. Postoperative ileus, resolved clinically. PLAN: Overall doing much better. Currently on a full liquid diet. Encouraged to ambulate. MMODL / IJN: [id number] /
[2018-10-16 06:39] VITALS: BP 120/79; PULSE 70; RESP 18; TEMP 98.9
[2018-10-16] MEDS: PANTOPRAZOLE 40 MG TABLET PO SCH (08:18)
[2018-10-16] MEDS: ENOXAPARIN 40 MG/0.4 ML SYRINGE SQ SCH (08:18)
[2018-10-16] MEDS: NICOTINE 14MG/24HR PATCH TRANSDERM SCH (08:18)
--- NOTE | 2018-10-16 10:13 | P.PN ---
Subjective Progress Note Date: 10/16/18 53-year-old male seen postop follow-up visit. Patient's postop exploratory laparotomy lysis of adhesions for complete small bowel obstruction due to closed -loop obstruction done on the 10 of October. Patient states she's been up ambulating in the hallway had a large bowel movement last night passing gas. Surgical dressing site dry. Surgical tenderness appropriate. States pain medication effective for pain control. Patient is asking for his diet to be advanced. Tolerating a full liquid. States anxious to be discharged home. No labs pending. Afebrile Objective - Vital Signs Vital signs: Vital Signs Temp 98.9 F 10/16/18 05:30 Pulse 70 10/16/18 05:30 Resp 18 10/16/18 05:30 BP 120/79 10/16/18 05:30 Pulse Ox 96 10/16/18 05:30 Intake & Output 10/15/18 10/16/18 10/16/18 18:59 06:59 18:59 Intake Total 600 200 120 Balance 600 200 120 Weight 95.254 kg Intake: Oral 600 200 120 Other: # Voids 1 1 # Bowel Movements 1 - Exam Physical exam 53-year-old male appears in no acute distress up ambulating in the [place] Lungs adequate air movement bilaterally on room air Heart S1-S2 audible regular Abdomen surgical dressing dry surgical tenderness appropriate no nausea no vomiting states had a large bowel movement yesterday with a significant improvement in abdominal pain asking for diet to be advanced states passing gas urinating no difficulty nondistended bowel tones present extremity no edema noted - Labs CBC & Chem 7: 10/09/18 09:17 10/13/18 09:02 Assessment and Plan Assessment: Impression Present on admission nausea vomiting abdominal cramping pain suspect due to a complete small bowel obstruction Postop unexpected ileus clinically resolved Chronic nicotine dependency Present on admission abdominal pain due to a complete small bowel obstruction due to a closed loop obstruction Postop October 10 exploratory laparotomy lysis of adhesions due to a complete small bowel obstruction due to a closed loop obstruction Plan Continue postop surgical care Advance diet Increase activity pain control DVT and GI prophylaxis Patient tolerates diet that has been advanced anticipate patient could be discharged from a surgical perspective within the next 24 hours The above impression and plan of care have been discussed and directed by signing physician. Daphne Mendez nurse practitioner acting as scribe for signing physician.
[2018-10-16] MEDS ORDERED: diphenhydrAMINE 50 MG CAP PO PRN (10:50)
--- NOTE | 2018-10-17 07:33 | DS ---
DISCHARGE SUMMARY DATE OF ADMISSION: 10/08/2018 DATE OF DISCHARGE: 10/16/2018 FINAL DIAGNOSES: 1. Acute small-bowel obstruction. 2. Chronic nicotine dependence, patient is a cigarette smoker. 3. Recreational marijuana use. 4. Lactic acidosis from above. 5. Acute postoperative ileus, resolved. SURGICAL PROCEDURE: Bowel surgery with lysis of adhesions. CONSULTATION: Dr. Barros from General Surgery. HOSPITAL COURSE: This patient presented with small-bowel obstruction was taken down for surgery, had lysis of adhesions, had a large bowel movement yesterday. Doing better today. Diet was advanced to normal today. Pain is well controlled. PHYSICAL EXAMINATION: On examination, temperature 98.9, pulse 72, respiration 18, blood pressure 120/79, pulse ox 96% room air. ABDOMEN: Soft, minimal tenderness. Lungs are clear. LABS: Potassium 3.6. The patient is okayed by Dr. Barros to go home. Care was discussed with the patient. DISCHARGE MEDICATIONS: 1. [place] 5 one tablet q.[address] Barros. 2. Nicotine patch 14. Follow up with Dr. Moreira on 10/22/2018. Follow up with Dr. Barros on 10/23/2018. Diet: Soft, bland. Other surgical instructions per Dr. Barros. MMODL / IJN: [id number] /
--- NOTE | 2018-10-18 07:04 | CDI ---
Last Revision, October 2017 Documentation Clarification Form Date: 09/2918 From: Ami Vasu Bernadine Enriquez, Promotions Specialist Hours-8:30 am & 5 pm Vaibhav Admit Date: 10/08/2018 6:25:00 PM Patient Name: Gigi Suazo Visit Number: [id number] Discharge Date: 10/16/18 ATTENTION: The Clinical Documentation Specialists (CDI) and [facility] Coding Staff appreciate your assistance in clarifying documentation. Please respond to the clarification below the line at the bottom and electronically sign. The CDI & [facility] Coding staff will review the response and follow-up if needed. Please note: Queries are made part of the Legal Health Record. If you have any questions, please contact the author of this message via ITS. Milan Villegas MD Postop unexpected ileus clinically resolved per 10/16 PN. Patient history/risk factors: complete small bowel obstruction due to adhesions with release of adhesions Clinical Indicators: nausea on 10/15 PN Radiology: Nonspecific abdomen correlate for ileus or partial obstruction Treatment: No NG tube, diet advanced, No Prostigmin injection, No colonoscopic decompression, No rectal tube Medication: no medication added or adjusted Was the unexpected postop ileus clinically significant and treated Was the unexpected postop ileus not clinically significant and not treated Please continue to document in your progress notes and discharge summary in order to capture severity of illness and risk of mortality. Include clinical findings that support your diagnosis. Addendum made to discharge summary MTDD
--- NOTE | 2018-11-03 08:42 | P.DS ---
Providers Date of admission: 10/08/18 18:25 Expected date of discharge: 10/16/18 Attending physician: Pj David Consults: 10/08/18 16:21 Consult Physician Stat Consulting Provider: Milan Barros Consult Reason/Comments: SBO Do you want consulting provider notified?: Yes Primary care physician: Micah Moreira [facility] Course: this is a 53-year-old male who developed a small bowel obstruction. Patient was ultimately found to have a complete small bowel obstruction due to an adhesive band closed loop obstruction.please see chart for details. Procedures: prieto laparotomy, lysis of adhesions. Patient Condition at Discharge: Good Plan - Discharge Summary New Discharge Prescriptions: New HYDROcodone/APAP 5-325MG [[place] 5-325] 1 each PO Q4HR PRN #18 tab PRN Reason: Moderate To Severe Pain Nicotine 14Mg/24Hr Patch [Habitrol] 1 patch TRANSDERM DAILY #30 patch Discharge Medication List HYDROcodone/APAP 5-325MG [[place] 5-325] 1 each PO Q4HR PRN #18 tab 10/16/18 [Rx] Nicotine 14Mg/24Hr Patch [Habitrol] 1 patch TRANSDERM DAILY #30 patch 10/16/18 [ Rx] Follow up Appointment(s)/Referral(s): Micah Moreira MD [Primary Care Provider] - 10/22/18 10:45 am Milan Barros MD [STAFF PHYSICIAN] - 10/23/18 2:50 pm Patient Instructions/Handouts: Lysis of Abdominal Adhesions (DC), Bowel Obstruction (DC) Activity/Diet/Wound Care/Special Instructions: No tub bath for six weeks. Shower daily. No lifting over 10 pounds for the next 2 weeks. May use ice packs to surgical site. No driving while taking narcotic for pain. LEAVE SURGICAL DRESSING IN PLACE UNTIL FOLLOW-UP WITH DR. BARROS Soft [place] Diet Discharge Disposition: HOME SELF-CARE
== END 2018-10-16 15:02 | disposition home or self-care (01) | DRG 336 ==
LOC: EC 12:41 → 4MS4W 18:25
PROVIDERS: ADMIT Hospitalist; ATTEND Hospitalist
PROC: 0D9670Z Drainage of Stomach with Drainage Device, Via Natural or Artificial Opening (ICD-10-PCS; 2018-10-08)
PROC: 0DN80ZZ Release Small Intestine, Open Approach (ICD-10-PCS; principal; 2018-10-10 15:15)
DX: K56.52 Intestinal adhesions [bands] with complete obstruction (principal); E87.2 Acidosis; N17.9 Acute kidney failure, unspecified; R13.10 Dysphagia, unspecified; K56.7 Ileus, unspecified; I10 Essential (primary) hypertension; N40.0 Benign prostatic hyperplasia without lower urinary tract symptoms; F17.210 Nicotine dependence, cigarettes, uncomplicated; Z71.6 Tobacco abuse counseling; Z87.76 Personal history of (corrected) congenital malformations of integument, limbs and musculoskeletal system; Z82.49 Family history of ischemic heart disease and other diseases of the circulatory system
CPT/HCPCS: 36415; 71046; 71260; 74021; 74176; 74177; 80048; 80053; 81001; 82150; 83605; 83690; 85025; 85610; 86850; 86900; 86901; 87502; 94760; 96361; 96374; 96375; 99285